=== PATIENT | female | born 1940 | race Hispanic/Latino ===

== ENCOUNTER → 2017-11-06 | Outpatient (CLI) | payer OTHER, MEDICARE ==
[~2017-11-06] MED LIST: ACET-2743 PO; ASPI-555 PO; CEFD300C3 PO; ESOM40CA54 PO; EZET10TA26 PO; FLUT16H NS; GUAI400T79 PO; LACT10SO9 PO; MECL-111 PO; METO25TA6 PO; MONT10TA24 PO; RALO60TA13 PO; SIMV40TA5 PO; [UNRECOGNIZED DRUG - CODE] PO
== END | disposition home or self-care (01) ==
LOC: OIH 11:11
PROVIDERS: ATTEND Internal Medicine
DX: I10 Essential (primary) hypertension (principal)
CPT/HCPCS: 71046

== ENCOUNTER → 2019-07-08 | Outpatient (CLI) | payer OTHER, MEDICARE ==
[~2019-07-08] MED LIST changes: +AMLO-358 PO; -EZET10TA26 PO; +EZET10TA48 PO; -[UNRECOGNIZED DRUG - CODE] PO
== END | disposition home or self-care (01) ==
LOC: SHCH 11:27
PROVIDERS: ATTEND Internal Medicine Cardiovascular Disease
DX: I73.9 Peripheral vascular disease, unspecified (principal)
CPT/HCPCS: 93925

== ENCOUNTER → 2019-07-15 | Outpatient (CLI) | payer OTHER, MEDICARE ==
--- NOTE | 2019-07-12 12:31 | NUR ---
PT CONSUMED CHOCOLATE WHILE WAITING IN LOBBY PRIOR TO INITIAL SCAN. UNABLE TO PERFORM LEXISCAN, RESCHEDULED TO 07/15/19.
[~2019-07-15] VITALS: Ht 154.9 cm; Wt 68.9 kg
[~2019-07-15] MED LIST changes: +REGADENOSON 0.4 MG/5 ML PF SYG IVP ONE; +REGADENOSON 0.4 MG/5 ML PF SYG IVP SCH
== END | disposition home or self-care (01) ==
LOC: SHCH 07-12 07:57
PROVIDERS: ATTEND Internal Medicine Cardiovascular Disease
DX: I10 Essential (primary) hypertension (principal); I25.10 Atherosclerotic heart disease of native coronary artery without angina pectoris; E78.5 Hyperlipidemia, unspecified
CPT/HCPCS: 78452; 93017; 96374; A9500 ×2; J2785

== ENCOUNTER → 2020-03-24 | Outpatient (CLI) | payer OTHER, MEDICARE ==
[~2020-03-24] MED LIST changes: -ASPI-555 PO; +ASPI-556 PO; -GUAI400T79 PO; +GUAI400T94 PO; -MECL-111 PO; +MECL-160 PO; -MONT10TA24 PO; +MONT10TA26 PO; -REGADENOSON 0.4 MG/5 ML PF SYG IVP ONE; -REGADENOSON 0.4 MG/5 ML PF SYG IVP SCH; +SIMV-46 PO; -SIMV40TA5 PO
== END | disposition home or self-care (01) ==
LOC: RAH 10:25
PROVIDERS: ATTEND Internal Medicine Cardiovascular Disease
DX: M51.15 Intervertebral disc disorders with radiculopathy, thoracolumbar region (principal); M48.05 Spinal stenosis, thoracolumbar region
CPT/HCPCS: 72148

== ENCOUNTER → 2020-11-16 | Outpatient (CLI) | payer OTHER, MEDICARE ==
[~2020-11-16] MED LIST changes: -MONT10TA26 PO; +MONT10TA96 PO
== END | disposition home or self-care (01) ==
LOC: SHCH 09:27
PROVIDERS: ATTEND Internal Medicine Cardiovascular Disease
DX: I08.0 Rheumatic disorders of both mitral and aortic valves (principal); R01.1 Cardiac murmur, unspecified; I73.9 Peripheral vascular disease, unspecified
CPT/HCPCS: 93306; 93356; 93925

== ENCOUNTER → 2021-07-25 | Outpatient (CLI) | payer OTHER, MEDICARE ==
[~2021-07-25] MED LIST changes: +MONT10TA32 PO; -MONT10TA96 PO
== END | disposition home or self-care (01) ==
LOC: RAH 09:17
PROVIDERS: ATTEND Neurological Surgery
DX: M51.35 Other intervertebral disc degeneration, thoracolumbar region (principal); M47.814 Spondylosis without myelopathy or radiculopathy, thoracic region; M48.05 Spinal stenosis, thoracolumbar region
CPT/HCPCS: 72146

== ENCOUNTER → 2021-09-10 | Outpatient (CLI) | payer OTHER, MEDICARE ==
[~2021-09-10] MED LIST changes: -AMLO-358 PO; +MONT-39 PO; -MONT10TA32 PO; +[UNRECOGNIZED DRUG - CODE] PO
== END | disposition home or self-care (01) ==
LOC: RAH 10:00
PROVIDERS: ATTEND Neurological Surgery
DX: M47.812 Spondylosis without myelopathy or radiculopathy, cervical region (principal); R26.89 Other abnormalities of gait and mobility
CPT/HCPCS: 72141

== ENCOUNTER → 2022-09-17 | Outpatient (CLI) | payer OTHER, MEDICARE | END | disposition home or self-care (01) | LOC: RAH 10:11 | PROVIDERS: ATTEND Internal Medicine Gastroenterology | DX: K57.10 Diverticulosis of small intestine without perforation or abscess without bleeding (principal); R10.9 Unspecified abdominal pain; R68.81 Early satiety | CPT/HCPCS: 74240 ==

== ENCOUNTER → 2022-10-02 | Outpatient (CLI) | payer OTHER, MEDICARE ==
[2022-10-02 13:11] LABS: BASOPHILS % (AUTO) 0.4 % (0.0-5.0); EOSINOPHILS % (AUTO) 1.8 % (0.0-8.0); HEMATOCRIT 41.4 % (36-48); LYMPHOCYTES % (AUTO) 24.1 % (21.0-51.0); MEAN CORPUSCULAR HGB CONC 32.4 g/dL (32.0-36.0); MEAN CORPUSCULAR VOLUME 98.8 fL (79-99); NEUTROPHILS % (AUTO) 63.5 % (40.0-77.0); PLATELET COUNT (AUTO) 146 K/uL (130-400); RED BLOOD CELL COUNT(AUTO) 4.19 MIL/uL (4.00-5.50); RED CELL DISTRIBUTION WIDTH 13.7 % (11.0-15.5); WHITE BLOOD COUNT (AUTO) 4.5 K/uL (4.8-10.8)
[2022-10-02 13:24] LABS: INR 1.05 (0.85-1.15); PROTHROMBIN TIME 11.4 SEC (9.6-11.6)
[2022-10-02 13:26] LABS: PARTIAL THROMBOPLASTIN TIME 29.9 SEC (26.3-35.5)
[2022-10-02 13:34] LABS: ALBUMIN 3.3 g/dL (3.5-5.0); CREATININE 0.5 mg/dL (0.5-1.5); TOTAL PROTEIN, SERUM 7.5 g/dL (6.0-8.3)
== END | disposition home or self-care (01) ==
LOC: LAB 10:58
PROVIDERS: ATTEND Internal Medicine Gastroenterology
DX: K74.60 Unspecified cirrhosis of liver (principal); R19.7 Diarrhea, unspecified; R19.4 Change in bowel habit
CPT/HCPCS: 36415; 80053; 82105; 85025; 85610; 85730; 87507

== ENCOUNTER → 2022-10-30 | Outpatient (CLI) | payer OTHER, MEDICARE | END | disposition home or self-care (01) | LOC: RAH 08:52 | PROVIDERS: ATTEND Internal Medicine Gastroenterology | DX: N20.0 Calculus of kidney (principal); N28.1 Cyst of kidney, acquired; R10.9 Unspecified abdominal pain | CPT/HCPCS: 76700 ==

== ENCOUNTER 2022-11-21 12:46 | Emergency (ER) | payer OTHER, MEDICARE ==
[~2022-11-21] VITALS: Ht 157.5 cm; Wt 54.0 kg
[2022-11-21] MEDS ORDERED: 0.9%NACL 1000ML 1,000 ML IV ONE (14:00)
[2022-11-21 14:13] LABS: BASOPHILS % (AUTO) 0.2 % (0.0-5.0); EOSINOPHILS % (AUTO) 0.6 % (0.0-8.0); HEMATOCRIT 39.8 % (36-48); LYMPHOCYTES % (AUTO) 24.1 % (21.0-51.0); MEAN CORPUSCULAR HEMOGLOBIN 32.1 pg (27.0-33.0); MEAN CORPUSCULAR HGB CONC 33.9 g/dL (32.0-36.0); MEAN CORPUSCULAR VOLUME 94.5 fL (79-99); MONOCYTES % (AUTO) 8.5 % (3.0-13.0); NEUTROPHILS % (AUTO) 66.2 % (40.0-77.0); PLATELET COUNT (AUTO) 121 K/uL (130-400); RED BLOOD CELL COUNT(AUTO) 4.21 MIL/uL (4.00-5.50); RED CELL DISTRIBUTION WIDTH 13.1 % (11.0-15.5); WHITE BLOOD COUNT (AUTO) 5.1 K/uL (4.8-10.8)
[2022-11-21 14:22] LABS: CREATININE 0.6 mg/dL (0.5-1.5); POTASSIUM 3.8 mmol/L (3.5-5.1)
[2022-11-21 14:26] LABS: ALBUMIN 3.2 g/dL (3.5-5.0); TOTAL PROTEIN, SERUM 6.8 g/dL (6.0-8.3)
[2022-11-21 15:52] LABS: APPEARANCE,URINE CLEAR (CLEAR); BILIRUBIN,URINE NEGATIVE (NEGATIVE); COLOR,URINE LIGHT-YELLOW (YELLOW); GLUCOSE, URINE (UA) NEGATIVE (NEGATIVE); KETONES,URINE 5 mg/dL (NEGATIVE); LEUKOCYTE ESTERASE ,URINE NEGATIVE Leu/uL (NEGATIVE); NITRATE,URINE NEGATIVE (NEGATIVE); OCCULT BLOOD,URINE NEGATIVE (NEGATIVE); PROTEIN,URINE NEGATIVE (NEGATIVE); UROBILINOGEN,URINE 0.2 mg/dL (0.2-1.0)
[2022-11-21] MEDS ORDERED: IBUP-2070 PO (16:05)
[2022-11-21] MEDS ORDERED: IBUPROFEN 600 MG TABLET ONE (16:15)
[2022-11-21 16:18] VITALS: BP 132/49
[2022-11-21 16:24] LABS: RBC,URINE 0-1 /HPF (0-1); SQUAMOUS EPITHELIAL CELL,UR RARE /HPF (0-2); WBC,URINE 0-1 /HPF (0-1)
[2022-11-21] MEDS ORDERED: IBUPROFEN 600 MG TABLET PO ONE (16:30)
== END 2022-11-21 16:22 | disposition home or self-care (01) ==
LOC: EDH 12:46
DX: S09.8XXA Other specified injuries of head, initial encounter (principal); S46.911A Strain of unspecified muscle, fascia and tendon at shoulder and upper arm level, right arm, initial encounter; S96.811A Strain of other specified muscles and tendons at ankle and foot level, right foot, initial encounter; E78.00 Pure hypercholesterolemia, unspecified; I10 Essential (primary) hypertension; R11.2 Nausea with vomiting, unspecified; R19.7 Diarrhea, unspecified; Z79.899 Other long term (current) drug therapy; Z90.49 Acquired absence of other specified parts of digestive tract; Z79.82 Long term (current) use of aspirin; Z88.8 Allergy status to other drugs, medicaments and biological substances; W18.39XA Other fall on same level, initial encounter; Y93.01 Activity, walking, marching and hiking; Y92.090 Kitchen in other non-institutional residence as the place of occurrence of the external cause; Y99.8 Other external cause status
CPT/HCPCS: 29515; 36415; 70450; 73030; 73600; 80053; 81001; 84484; 85025; 93005; 96360; 96361

== ENCOUNTER → 2023-03-31 | Outpatient (CLI) | payer OTHER, MEDICARE ==
[~2023-03-31] MED LIST changes: +IBUP-2070 PO
== END | disposition home or self-care (01) ==
LOC: SHCH 11:08
PROVIDERS: ATTEND Internal Medicine Cardiovascular Disease
DX: I08.0 Rheumatic disorders of both mitral and aortic valves (principal); I11.9 Hypertensive heart disease without heart failure; E78.5 Hyperlipidemia, unspecified
CPT/HCPCS: 93306

== ENCOUNTER → 2023-04-08 | Outpatient (CLI) | payer OTHER, MEDICARE | END | disposition home or self-care (01) | LOC: SHCH 07:39 | PROVIDERS: ATTEND Internal Medicine Cardiovascular Disease | DX: I70.0 Atherosclerosis of aorta (principal); I35.0 Nonrheumatic aortic (valve) stenosis | CPT/HCPCS: 93975 ==